=== PATIENT | male | born 1970 | race Caucasian/White ===

== ENCOUNTER 2016-10-08 18:23 | Inpatient (IN) | payer MEDICAID, OTHER ==
[~2016-10-08] VITALS: Ht 170.2 cm; Wt 91.2 kg
[~2016-10-08 18:23] MED LIST: AMLO2.5T2 PO; ATOR20TA38 PO; IBUP800T25 PO; METF500T PO; OMEG-135 PO; VIGA LEFT EYE
[2016-10-08] MEDS ORDERED: ONDANSETRON 4 MG INJ IV STA (19:54)
[2016-10-08] MEDS ORDERED: METOPROLOL 5 MG INJ IV STA (19:54)
[2016-10-08] MEDS ORDERED: morphine 4 MG/ML VIAL IV STA (19:54)
[2016-10-08] MEDS ORDERED: NITROGLYCERIN 2% 1 GM OINT PKT TD STA (19:54)
[2016-10-08 20:12] LABS: ADD SCAN DIFF NO
[2016-10-08 20:14] LABS: BASOPHILS % 0.3 % (0.0-2.0); EOSINOPHILS # 0.2 10^3/ul (0.0-0.5); EOSINOPHILS % 2.3 % (0.0-7.0); HEMATOCRIT 47.2 % (42.0-52.0); HEMOGLOBIN 16.7 g/dl (14.0-18.0); LYMPHOCYTES # 3.9 10^3/ul (0.8-2.9); LYMPHOCYTES % 40.5 % (15.0-51.0); MEAN CORPUSCULAR HEMOGLOBIN 29.8 pg (29.0-33.0); MEAN CORPUSCULAR HGB CONC 35.4 g/dl (32.0-37.0); MEAN CORPUSCULAR VOLUME 84.1 fl (82.0-101.0); MEAN PLATELET VOLUME 10.6 fl (7.4-10.4); MONOCYTE # 0.4 10^3/ul (0.3-0.9); MONOCYTES % 3.8 % (0.0-11.0); NEUTROPHIL # 5.1 10^3/ul (1.6-7.5); NEUTROPHILS % 52.9 % (39.0-77.0); PLATELET COUNT 212 10^3/UL (140-415); RED BLOOD COUNT 5.61 10^6/ul (4.70-6.10); RED CELL DISTRIBUTION WIDTH 11.8 % (11.5-14.5); WHITE BLOOD COUNT 9.6 10^3/ul (4.8-10.8)
[2016-10-08 20:23] LABS: INR 0.96; PROTIME 12.8 Sec (12.2-14.2)
[2016-10-08 20:24] LABS: CHLORIDE 96 mmol/L (97-110); PARTIAL THROMBOPLASTIN TIME 26.4 Sec (25.0-35.0); POTASSIUM 3.9 mmol/L (3.5-5.1); SODIUM 137 mmol/L (135-144)
[2016-10-08] MEDS ORDERED: IOHEXOL 350MG/ML 50 ML BTL ONE (20:26)
[2016-10-08] MEDS ORDERED: SOD CHLORIDE 0.9% 100 ML ONE (20:26)
[2016-10-08 20:27] LABS: ANION GAP 19 (8-16); CARBON DIOXIDE 26 mmol/L (21-31); CREATININE 0.58 mg/dl (0.61-1.24)
[2016-10-08 20:28] LABS: BLOOD UREA NITROGEN 11 mg/dl (7-20); CALCIUM 9.4 mg/dl (8.4-10.2); GLUCOSE 192 mg/dl (70-220)
[2016-10-08 20:40] LABS: TROPONIN-I < 0.012 ng/ml (0.00-0.12)
[2016-10-08] MEDS ORDERED: IOHEXOL 100 ML ONE (20:40)
--- NOTE | 2016-10-08 21:17 | RADRPT ---
PROCEDURE: XR Chest AP portable CLINICAL INDICATION: Chest pain TECHNIQUE: An AP portable radiograph of the chest was submitted. COMPARISON: 03/29/2014 FINDINGS: Support Hardware: None Cardiovascular: The cardiovascular silhouette appears unremarkable. Lung Snell: The lung snell appear clear with no nodule, alveolar infiltrate, or interstitial promi nence evident. Pleural Spaces: No pneumothorax or pleural effusion is identified. Osseous Structures: The osseous structures appear intact. Soft Tissues: The soft tissues appear unremarkable. IMPRESSION: Stable and unremarkable portable chest. Physician Yanick Date Time Electronically viewed and signed by Melvina Rucker Physician on 10/08/2016 21:16 /
[2016-10-08] MEDS ORDERED: ATOR40TA68 PO (21:22)
[2016-10-08] MEDS ORDERED: GLIM4TAB PO (21:23)
[2016-10-08] MEDS ORDERED: LISI20TA11 PO (21:23)
[2016-10-08] MEDS ORDERED: LISI1TAB6 PO (21:24)
--- NOTE | 2016-10-08 21:25 | ERA ---
ER Documentation Chief Complaint Date/Time DATE: 10/08/16 TIME: 21:23 Chief Complaint CP X4 DAYS INTERMITTENT WORSE TODAY. +SOB HPI 46-year-old male history of hypertension, smoking, hyperlipidemia who presents the emergency room with chest pain. 3 days of chest pain that is intermittent and now worse today that is substernal radiating to his back. He denies any pleuritic pain, no numbness or tingling. The patient states that his blood pressure is regular in the 160s over 110s. He states compliance with medications. Pain is moderate currently. ROS All systems reviewed and are negative except as per history of present illness. Medications Home Meds Reported Medications Lisinopril/Hydrochlorothiazide (Lisinopril-Hctz 20-12.5 mg Tab) 1 Each Tablet, 1 EACH PO DAILY, TAB 10/08/16 Glimepiride* (Glimepiride*) 4 Mg Tablet, 4 MG PO WITH BREAKFAST, TAB 10/08/16 Atorvastatin* (Atorvastatin*) 40 Mg Tablet, 40 MG PO DAILY, #30 TAB 10/08/16 Discontinued Reported Medications Lisinopril* (Lisinopril*) 20 Mg Tablet, 20 MG PO DAILY, #30 TAB 10/08/16 Discontinued Scripts Moxifloxacin Hcl* (Vigamox*) 0.5% - 3 Ml Opht, 1 DROP LEFT EYE TID for 7 Days, EA Prov:GUADALUPE DAWN SAL[employer] COMPENSATION ANALYST 04/12/16 Ibuprofen* (Motrin*) 800 Mg Tab, 800 MG PO Q8 Y for PAIN AND OR ELEVATED TEMP, # 30 TAB Prov:ANGÉLICA WRIGHT SALES COMPENSATION ANALYST 01/15/16 Metformin Hcl (Glucophage) 500 Mg Tab, 500 MG PO AC BREAKFAST DINNER for 30 Days Prov:SERGEY WALLACE SALES COMPENSATION ANALYST 10/08/14 Fish Oil* (Fish Oil*) 1,000 Mg Cap, 1000 MG PO BID for 30 Days, CAP Prov:SERGEY WALLACE SALES COMPENSATION ANALYST 10/08/14 Atorvastatin Calcium* (Atorvastatin Calcium*) 20 Mg Tab, 40 MG PO HS for 30 Days Prov:SERGEY WALLACE SALES COMPENSATION ANALYST 10/08/14 Amlodipine Besylate* (Norvasc*) 2.5 Mg Tab, 2.5 MG PO DAILY for 30 Days Prov:SERGEY WALLACE SALES COMPENSATION ANALYST 10/08/14 Allergies Allergies: Coded Allergies: No Known Allergy (Unverified , 10/08/16) Patient has allergy from antibiotics but does not know the names. PMhx/Soc History of Surgery: No (HERNIA REPAIR '87) Anesthesia Reaction: No Hx Neurological Disorder: No Hx Respiratory Disorders: No Hx Cardiac Disorders: Yes (HTN, HYPERLIPIDEMIA) Hx Psychiatric Problems: No Hx Miscellaneous Medical Probl: No (DM) Hx Alcohol Use: Yes (PT STATED "SOCIAL") Hx Substance Use: No Hx Tobacco Use: Yes Smoking Status: Heavy tobacco smoker FmHx Family History: coronary disease, No diabetes Physical Exam Vitals Vital Signs Date Time Temp Pulse Resp B/P Pulse Ox O2 Delivery O2 Flow Rate FiO2 10/08/16 20:13 98 18 148/97 98 10/08/16 19:18 99.0 98 20 153/97 99 Physical Exam General: Well developed, well nourished, no acute distress Head: Normocephalic, atraumatic. Eyes: Pupils equally reactive, EOM intact ENT: Moist mucous membranes Neck: Supple, no lymphadenopathy Respiratory: Lungs clear bilaterally, no distress Cardiovascular: RRR, no murmurs, rubs, or gallops Abdominal: Soft, non-tender, non-distended, no peritoneal signs : Deferred MSK: No edema, no unilateral swelling, 5/5 strength, no pulse deficit Neurologic: Alert and oriented, moving all extremities, normal speech, no focal weakness, no cerebellar signs Skin: No rash Psych: Normal mood Result Diagram: 10/08/16199910/08/161999 Results 24 hrs Laboratory Tests Test 10/08/16 20:00 Activated Partial Thromboplast Time 26.4Sec Anion Gap 19 Basophils # 0.010^3/ul Basophils % 0.3% Blood Urea Nitrogen 11mg/dl Calcium Level 9.4mg/dl Carbon Dioxide Level 26mmol/L Chloride Level 96mmol/L Creatinine 0.58mg/dl Eosinophils # 0.210^3/ul Eosinophils % 2.3% Glucose Level 192mg/dl Hematocrit 47.2% Hemoglobin 16.7g/dl INR International Normalized Ratio 0.96 Lymphocytes # 3.910^3/ul Lymphocytes % 40.5% Mean Corpuscular Hemoglobin 29.8pg Mean Corpuscular Hemoglobin Concent 35.4g/dl Mean Corpuscular Volume 84.1fl Mean Platelet Volume 10.6fl Monocytes # 0.410^3/ul Monocytes % 3.8% Neutrophils # 5.110^3/ul Neutrophils % 52.9% Nucleated Red Blood Cells # 0.010^3/ul Nucleated Red Blood Cells % 0.0/100WBC Platelet Count 96860^3/UL Potassium Level 3.9mmol/L Prothrombin Time 12.8Sec Prothrombin Time Ratio 1.0 Red Blood Count 5.6110^6/ul Red Cell Distribution Width 11.8% Sodium Level 137mmol/L Troponin I < 0.012ng/ml White Blood Count 9.610^3/ul Current Medications Medications (Trade) Dose Ordered Sig/Parish Route PRN Reason Start Time Stop Time Status Last Admin Dose Admin Nitroglycerin (Nitroglycerin 2% Oint) 1 inch ONCE STAT TD 10/08/16 19:54 10/08/16 19:55 DC 10/08/16 20:19 Morphine Sulfate (morphine) 4 mg ONCE STAT IV 10/08/16 19:54 10/08/16 19:55 DC 10/08/16 20:19 Ondansetron HCl (Zofran Inj) 4 mg ONCE STAT IV 10/08/16 19:54 10/08/16 19:55 DC 10/08/16 20:18 Metoprolol Tartrate (Lopressor) 5 mg ONCE STAT IV 10/08/16 19:54 10/08/16 19:55 DC IV Flush 10 ml 10 ml STK-MED ONCE .ROUTE 10/08/16 20:26 10/08/16 20:27 DC 10/08/16 21:20 Sodium Chloride (NS) 100 ml @ ud STK-MED ONCE .ROUTE 10/08/16 20:26 10/08/16 20:27 DC 10/08/16 21:29 Iohexol 50 ml 50 ml STK-MED ONCE .ROUTE 10/08/16 20:26 10/08/16 20:27 DC 10/08/16 21:28 Iohexol (Omnipaque) 100 ml @ ud STK-MED ONCE .ROUTE 10/08/16 20:40 10/08/16 20:41 DC 10/08/16 21:30 Aspirin (Aspirin) 324 mg ONCE ONCE PO 10/08/16 22:30 10/08/16 22:31 UNV Aspirin (Aspirin) 325 mg ONCE PO 10/08/16 22:30 10/09/16 22:29 Ondansetron HCl (Zofran Inj) 4 mg ER BRIDGE PRN IV NAUSEA AND/OR VOMITING 10/08/16 22:30 10/09/16 22:29 Acetaminophen (Tylenol Tab) 650 mg ER BRIDGE PRN PO MILD PAIN/FEVER 10/08/16 22:30 10/09/16 22:29 Procedures/MDM EKG, MONITORS, & DIAGNOSTIC IMAGING: EKG: I reviewed and interpreted a 12-lead EKG. Rhythm: Normal sinus rhythm Ectopy: None Intervals: No abnormalities ST segments: No elevations or depressions T waves: No contiguous inversions Repeat EKG: EKG: I reviewed and interpreted a 12-lead EKG. Rhythm: Normal sinus rhythm Ectopy: None Intervals: No abnormalities ST segments: No elevations or depressions T waves: No contiguous inversions Chest x-ray: I reviewed and interpreted a 1 view of the chest Mediastinum: No enlargement Cardiac silhouette: No cardiomegaly Airspace: Clear lung snell bilaterally without evidence of pneumothorax Bones: No evidence of fracture CTA chest for dissection No dissection no pulmonary embolism LAB INTERPRETATION: Negative troponin MEDICAL DECISION MAKING: The patient's history, physical exam and clinical presentation is concerning for possible cardiogenic etiology and acute coronary syndrome. The patient also has significant hypertension and migratory pain to his back raises the concern for dissection. This warrants CT imaging. Based on the patient's clinical exam and history and risk factors, I have a much lower clinical concern for pulmonary embolism, pneumothorax, pneumonia, cardiac tamponade HEART Score: 4 MACE Rate: 16.6% Shared Decision Making: We had a conversation regarding risk stratification, MACE rate, and the risks, benefits, alternatives of disposition planning options. Disposition planning: Strongly recommend inpatient hospitalization, patient is agreeable ER COURSE: Avoid aspirin until negative CT imaging. The patient was given metoprolol, pain medication. Aspirin provided. Pain improved. Blood pressure improved. I kept the patient and/or family informed of laboratory and diagnostic imaging results throughout the emergency room course. DISPOSITION PLAN: Telemetry admission for risk stratification, rule out of ACS CONSULTATION: Accepting care team and consultations: I discussed the current laboratory data, diagnostic imaging and emergency care provided. Admitting team: Dr. Amaya Admitting team indication: Insurance directed Departure Diagnosis: Primary Impression: Hypertensive urgency Additional Impression: Chest pain Qualified Code: R07.9 - Chest pain, unspecified type Condition: Stable SANTOS BAXTER MD Oct 08, 2016 21:25
--- NOTE | 2016-10-08 22:02 | RADRPT ---
PROCEDURE: CT chest with contrast/thoracic aortic protocol CLINICAL INDICATION: Chest pain and shortness of breath. Clinical concern for aortic dissection TECHNIQUE: The study was performed from the thoracic inlet to the upper abdomen with the use of 12 5 cc of , AP 350 intravenous contrast material per thoracic aortic dissection protocol. Coronal/sagi ttal reformatted images and coronal MIP images were generated. The images were reviewed on a PACS w orkstation. CTDIvol = 54.21 mGy and DLP= 809.12 mGycm. COMPARISON: Chest x-ray 10/08/2016 FINDINGS: Lungs, airway and pleura: The trachea and bronchi are patent as well as normal in caliber. The nitin gs are clear of infiltrates, masses or nodules, trace dependent subsegmental atelectasis in the lowe r lobes is present. The pleural spaces are clear, without effusions. Mediastinum, kostas and cardiovascular: The heart is normal in size. There is no evidence for perica rdial effusion. The thoracic aorta is normal in caliber and there is no evidence of dissection. The re are no filling defects within the pulmonary arteries to suggest emboli. There is no evidence for hilar mass and no mediastinal adenopathy is present. The esophagus is normal in caliber but with mi ld wall thickening raising suggestion of esophagitis. Osseous structures and musculoskeletal findings: There is preservation of bone architecture and min eralization with no evidence for fracture, lytic or blastic lesion. Mild multilevel thoracic spondyl osis is noted. No chest wall abnormalities are present. The axillary regions are unremarkable. Visualized upper abdomen: Subtle stranding of the fat surrounding the pancreatic head raises sugges tion of pancreatitis, no other abnormalities are demonstrated. The adrenal glands are normal bilate rally. RPTAT:HJJR IMPRESSION: 1. No evidence of aortic dissection or thoracic aortic aneurysm. 2. Mild diffuse esophageal wall thickening may reflect esophagitis in the proper clinical setting. 3. No evidence of pulmonary embolism. 4. Subtle stranding surrounding the visualized pancreatic head equivocal for pancreatitis. Consider serologic lipase correlation if deemed clinically appropriate. Physician Jesenia Date Time Electronically viewed and signed by Physician Jesenia on 10/08/2016 22:02 /
[2016-10-08] MEDS ORDERED: ACETAMINOPHEN 325 MG TAB PO PRN ×2 (22:30→23:00)
[2016-10-08] MEDS ORDERED: ONDANSETRON 4 MG INJ IV PRN ×2 (22:30→23:00)
[2016-10-08] MEDS ORDERED: ASPIRIN 325 MG TAB PO SCH (22:30)
[2016-10-08] MEDS ORDERED: ASPIRIN 81 MG TAB PO ONE (22:30)
[2016-10-08] MEDS ORDERED: SOD CHLORIDE 0.45% 1,000 ML IV SCH (22:31)
[2016-10-08] MEDS ORDERED: GLUCOSE GEL 15 GRAM TUBE PO PRN ×2 (23:00)
[2016-10-08] MEDS ORDERED: NITROGLYCERIN (SL) 0.4 MG TAB SL PRN (23:00)
[2016-10-08] MEDS ORDERED: morphine 2 MG INJ IV PRN (23:00)
[2016-10-08] MEDS ORDERED: ALBUTEROL/IPRATROPIUM (NEB) 3 ML AMP HHN PRN (23:00)
[2016-10-08] MEDS ORDERED: GLUCOSE GEL 15 GRAM TUBE BUCCAL PRN (23:00)
[2016-10-08] MEDS ORDERED: DEXTROSE 50% 50 ML SYRINGE IV PRN ×2 (23:00)
[2016-10-08] MEDS ORDERED: MAGNESIUM HYDROXIDE 30ML CUP PO PRN (23:00)
[2016-10-08] MEDS ORDERED: DOCUSATE SODIUM 100 MG CAP PO PRN (23:00)
[2016-10-08] MEDS ORDERED: NACL 0.9% 3 ML SYG IV SCH (23:00)
[2016-10-08] MEDS ORDERED: NA PHOSPHATE/BIPHOS 133 ML ENEMA PR PRN (23:00)
[2016-10-08] MEDS ORDERED: LORAZEPAM 2 MG INJ IV PRN (23:00)
[2016-10-08] MEDS ORDERED: HYDROCODONE/APAP (5/325) TAB PO PRN (23:00)
[2016-10-08] MEDS ORDERED: hydrALAzine 20 MG INJ IV PRN (23:00)
[2016-10-08] MEDS ORDERED: GLUCAGON 1 MG INJ IM PRN (23:00)
[2016-10-08 23:24] LABS: CREATINE KINASE 81 IU/L (23-200)
[2016-10-08 23:28] VITALS: PULSE 76
[2016-10-08 23:29] VITALS: BP 138/89; PULSE 70; RESP 18
[2016-10-08 23:31] VITALS: Ht 170.2 cm; Wt 91.2 kg
[2016-10-08 23:36] LABS: CK-MB < 0.22 ng/ml (0.0-2.4)
[2016-10-08 23:38] LABS: TROPONIN-I < 0.012 ng/ml (0.00-0.12)
[2016-10-09] VITALS (13 sets, daily range): BP systolic 97–114; BP diastolic 60–74; PULSE 57–89; RESP 16–20
[2016-10-09] MEDS: INSULIN ASPART [NOVOLOG] 3 ML PEN SC SCH ×6 (01:00→22:04)
[2016-10-09 02:39] LABS: CREATINE KINASE 72 IU/L (23-200)
[2016-10-09 02:49] LABS: CK-MB 0.27 ng/ml (0.0-2.4)
[2016-10-09 02:59] LABS: TROPONIN-I < 0.012 ng/ml (0.00-0.12)
--- NOTE | 2016-10-09 05:29 | HP ---
DATE OF ADMISSION: 10/08/2016 The patient was seen and examined by me on 10/08/2016 at 10:00 p.m. CHIEF COMPLAINT: Chest pain. HISTORY OF PRESENT ILLNESS: A 46-year-old male with past medical history of essential hypertension, high cholesterol, and questionable diabetes who presented to the emergency room with chest pain. Armani rangel had been complaining of chest pain for the last 3 days. The pain initially was intermittent in na ture and has gotten worse over the last 24 hours. It radiates slightly to his back. It was subster nal in nature. No fevers or chills, no diarrhea, no constipation, no abdominal pain. No upper or l ower GI bleeding. The patient did mention that his blood pressure is normally on the high normal ra nge, systolic in the 160s, and he says he does take his medicines as well. PAST MEDICAL HISTORY: As stated above. ALLERGIES: NO KNOWN DRUG ALLERGIES. MEDICATIONS AT HOME: Include 1. Glimepiride 4 mg with breakfast. 2. Lisinopril/hydrochlorothiazide 20/12.5, one tab daily. 3. Atorvastatin 40 mg daily. PAST SURGICAL HISTORY: He had a hernia repair in 1986. SOCIAL HISTORY: Drinks social alcohol, does smoke, states he is a heavy tobacco smoker but does not specify how much. Denies any IV drug abuse. FAMILY HISTORY: No coronary artery disease. No diabetes today. PHYSICAL EXAMINATION: VITAL SIGNS: T-max 99.0, pulse 98, respirations 18, blood pressure 148 to 153 systolic over 97 to 9 7 diastolic, saturating at 99% on room air. GENERAL: The patient is lying in bed, no acute distress. HEENT: Pupils equal, round, react to light. Extraocular muscles intact. NECK: Supple, no thyromegaly. LUNGS: Clear to auscultation bilaterally. CARDIOVASCULAR: S1, S2 heard. No rubs or gallops. ABDOMEN: Soft, nontender, nondistended. Normal bowel sounds. No rebound or guarding. MUSCULOSKELETAL: No lower extremity bilaterally. NEUROLOGIC: No focal deficits. LABORATORIES: CBC is completely normal. The troponin is negative x1. His basic metabolic panel wa s normal. Coags are normal. Chest x-ray was performed, stable, unremarkable chest x-ray. He had a CTA of the chest performed with no evidence of any aortic dissection or thoracic aortic aneurysm an d no evidence of any pulmonary embolism. Mild diffuse esophageal wall thickening may reflect esopha gitis in the proper clinical setting. Also on the CTA, there was subtle stranding surrounding the v isualized pancreatic head equivocal for pancreatitis. Consider serological lipase correlation if de emed clinically appropriate. ASSESSMENT AND PLAN: A 46-year-old male with chest pain symptoms, rule out acute coronary syndrome. 1. Chest pain. Admit him to telemetry floor, put him on aspirin, morphine, oxygen, and nitrates. Trend his troponins; first one is negative. Check a TSH, A1c, lipid panel, get echocardiogram. The patient does have a positive smoking history. Apparently no family history. Consider cardiology c onsult. The patient may benefit from a stress test; however, of course we will try to rule him out for acute coronary syndrome. 2. Essential hypertension. Blood pressure is on the high normal range. Continue current medicatio ns, JULIÁN inhibitor, hydrochlorothiazide, and also hydralazine and clonidine p.r.n. 3. Questionable diabetes. Check an A1c as well. Consider sliding scale insulin. 4. Positive smoking history. He needs smoking cessation. Again, consider cardiology consult if th ere are any abnormalities with his troponins. 5. High cholesterol. Check a lipid panel. 6. Gastrointestinal prophylaxis. Pepcid. 7. Deep venous thrombosis prophylaxis. Heparin subcutaneously. Dictated By: ABRIL BRYANT Conf#: [id number] DID#: [id number]
[2016-10-09 06:49] LABS: ADD SCAN DIFF NO
[2016-10-09 07:01] LABS: BASOPHILS % 0.3 % (0.0-2.0); EOSINOPHILS # 0.3 10^3/ul (0.0-0.5); EOSINOPHILS % 3.4 % (0.0-7.0); HEMATOCRIT 46.2 % (42.0-52.0); HEMOGLOBIN 15.8 g/dl (14.0-18.0); LYMPHOCYTES # 3.6 10^3/ul (0.8-2.9); MEAN CORPUSCULAR HEMOGLOBIN 29.4 pg (29.0-33.0); MEAN CORPUSCULAR HGB CONC 34.2 g/dl (32.0-37.0); MEAN CORPUSCULAR VOLUME 85.9 fl (82.0-101.0); MEAN PLATELET VOLUME 10.5 fl (7.4-10.4); MONOCYTE # 0.3 10^3/ul (0.3-0.9); NEUTROPHIL # 3.6 10^3/ul (1.6-7.5); PLATELET COUNT 186 10^3/UL (140-415); RED BLOOD COUNT 5.38 10^6/ul (4.70-6.10); RED CELL DISTRIBUTION WIDTH 12.1 % (11.5-14.5); WHITE BLOOD COUNT 7.8 10^3/ul (4.8-10.8)
[2016-10-09 07:16] LABS: CHOL/HDL RATIO 5.9 RATIO; CREATINE KINASE 67 IU/L (23-200)
[2016-10-09 07:30] LABS: CK-MB 0.28 ng/ml (0.0-2.4); TROPONIN-I < 0.012 ng/ml (0.00-0.12)
[2016-10-09 07:47] LABS: THYROID STIMULATING HORMONE 2.75 MIU/L (0.465-4.680)
[2016-10-09 07:52] LABS: POTASSIUM 3.5 mmol/L (3.5-5.1)
[2016-10-09 07:55] LABS: CREATININE 0.58 mg/dl (0.61-1.24)
[2016-10-09 07:56] LABS: CALCIUM 8.8 mg/dl (8.4-10.2); MAGNESIUM 1.7 mg/dl (1.7-2.5); PHOSPHORUS 4.7 mg/dl (2.5-4.9)
[2016-10-09] MEDS: HYDROCHLOROTHIAZIDE 12.5 MG CAP PO SCH (08:12)
[2016-10-09] MEDS: ATORVASTATIN 40 MG TAB PO SCH (08:12)
[2016-10-09] MEDS: LISINOPRIL 20 MG TAB PO SCH (08:12)
[2016-10-09] MEDS: ASPIRIN (EC) 325 MG TAB PO SCH (08:12)
[2016-10-09] MEDS: HEPARIN 5,000 UNIT/0.5 ML SYG SC SCH ×2 (08:14→20:06)
[2016-10-09] MEDS ORDERED: FAMOTIDINE 20 MG TAB PO SCH (09:00)
--- NOTE | 2016-10-09 10:40 | PN ---
Date/Time of Note Date/Time of Note DATE: 10/09/16 TIME: 10:31 Assessment/Plan VTE Prophylaxis VTE Prophylaxis Intervention: heparin Lines/Catheters IV [facility] Peripheral IV Urinary Cath still in place: No Assessment/Plan Assessment/Plan 1. atypical chest pain rule out ACS 2. Essential hypertension. Blood pressure is on the high normal range. Continue current medications, JULIÁN inhibitor, hydrochlorothiazide, and also hydralazine and clonidine p.r.n. 3. Questionable diabetes. Check an A1c as well. Consider sliding scale insulin. 4. Positive smoking history. He needs smoking cessation. Again, consider cardiology consult if there are any abnormalities with his troponins. 5. High cholesterol. Check a lipid panel. 6. Gastrointestinal prophylaxis. Pepcid. 7. Deep venous thrombosis prophylaxis. Heparin subcutaneously. Plan: conitnue BP meds Accucheck AC and HS and sliding scale Cardiology consult Griselda osullivan tot see pt ECHO has been ordered may need stress test depending on cardiology evaluation Subjective 24 Hr Interval Summary Free Text/Dictation doing ok,BP stable, But still c/o chest pain Exam/Review of Systems Vital Signs Vitals Vital Signs Date Time Temp Pulse Resp B/P Pulse Ox O2 Delivery O2 Flow Rate FiO2 10/09/16 08:09 60 10/09/16 07:48 97.5 18 111/74 93 10/09/16 05:20 Room Air Intake and Output 10/08/16 10/08/16 10/09/16 15:00 23:00 07:00 Intake Total 720 ml Balance 720 ml Exam GENERAL: The patient is lying in bed, no acute distress. HEENT: Pupils equal, round, react to light. Extraocular muscles intact. NECK: Supple, no thyromegaly. LUNGS: Clear to auscultation bilaterally. CARDIOVASCULAR: S1, S2 heard. No rubs or gallops. ABDOMEN: Soft, nontender, nondistended. Normal bowel sounds. No rebound or guarding. MUSCULOSKELETAL: No lower extremity bilaterally. NEUROLOGIC: No focal deficits. Results Result Diagram: 10/09/16 0640 10/09/16 0611 Results 24 hrs Laboratory Tests Test 10/08/16 20:00 10/08/16 23:00 10/09/16 01:55 10/09/16 04:24 Activated Partial Thromboplast Time 26.4 Anion Gap 19 H Basophils # 0.0 Basophils % 0.3 Blood Urea Nitrogen 11 Calcium Level 9.4 Carbon Dioxide Level 26 Chloride Level 96 L Creatinine 0.58 L Eosinophils # 0.2 Eosinophils % 2.3 Glucose Level 192 Hematocrit 47.2 Hemoglobin 16.7 INR International Normalized Ratio 0.96 Lymphocytes # 3.9 H Lymphocytes % 40.5 Mean Corpuscular Hemoglobin 29.8 Mean Corpuscular Hemoglobin Concent 35.4 Mean Corpuscular Volume 84.1 Mean Platelet Volume 10.6 H Monocytes # 0.4 Monocytes % 3.8 Neutrophils # 5.1 Neutrophils % 52.9 Nucleated Red Blood Cells # 0.0 Nucleated Red Blood Cells % 0.0 Platelet Count 212 Potassium Level 3.9 Prothrombin Time 12.8 Prothrombin Time Ratio 1.0 Red Blood Count 5.61 Red Cell Distribution Width 11.8 Sodium Level 137 Troponin I < 0.012 < 0.012 < 0.012 White Blood Count 9.6 # Creatine Kinase 81 72 Creatine Kinase Index 0.3 0.4 Creatinine Kinase MB (Mass) < 0.22 0.27 Free Thyroxine 1.09 Bedside Glucose 181 Test 10/09/16 06:11 10/09/16 06:40 10/09/16 07:40 Anion Gap 16 Blood Urea Nitrogen 11 Calcium Level 8.8 Carbon Dioxide Level 27 Chloride Level 99 Creatinine 0.58 L Glucose Level 192 Lipase 71 Magnesium Level 1.7 Phosphorus Level 4.7 Potassium Level 3.5 Sodium Level 138 Basophils # 0.0 Basophils % 0.3 Cholesterol Level 203 H Cholesterol/HDL Ratio 5.9 Creatine Kinase 67 Creatine Kinase Index 0.4 Creatinine Kinase MB (Mass) 0.28 Eosinophils # 0.3 Eosinophils % 3.4 HDL Cholesterol 34 Hematocrit 46.2 Hemoglobin 15.8 Hemoglobin A1c 10.9 H LDL Cholesterol, Calculated 97 Lymphocytes # 3.6 H Lymphocytes % 46.0 Mean Corpuscular Hemoglobin 29.4 Mean Corpuscular Hemoglobin Concent 34.2 Mean Corpuscular Volume 85.9 Mean Platelet Volume 10.5 H Monocytes # 0.3 Monocytes % 4.0 Neutrophils # 3.6 Neutrophils % 46.0 Nucleated Red Blood Cells # 0.0 Nucleated Red Blood Cells % 0.0 Platelet Count 186 Red Blood Count 5.38 Red Cell Distribution Width 12.1 Thyroid Stimulating Hormone (TSH) 2.750 Triglycerides Level 358 H Troponin I < 0.012 White Blood Count 7.8 Bedside Glucose 212 Medications Medications Current Medications Ondansetron HCl (Zofran Inj) 4 mg Q6H PRN IV NAUSEA AND/OR VOMITING; Start at 23:00 Acetaminophen (Tylenol Tab) 650 mg Q6H PRN PO PAIN LEVEL 1-3 OR FEVER; Start at 23:00 Acetaminophen/ Hydrocodone Bitart (Flushing (5/325)) 1 tab Q6H PRN PO MODERATE PAIN LEVEL 4-6; Start 10/08/16 at 23:00 Morphine Sulfate (morphine) 2 mg Q4H PRN IV SEVERE PAIN LEVEL 7-10; Start 10/08 at 23:00 Docusate Sodium (Colace) 100 mg Q12H PRN PO CONSTIPATION; Start 10/08/16 at 23: 00 Magnesium Hydroxide (Milk Of Mag) 30 ml DAILY PRN PO CONSTIPATION; Start at 23:00 Sodium Biphosphate/ Sodium Phosphate (Fleet Enema) 133 ml DAILY PRN OR CONSTIPATION; Start 10/08/16 at 23:00 Famotidine (Pepcid) 20 mg Q12 PO Last administered on 10/09/16 08:12; Admin Dose 20 MG; Start 10/09/16 at 09:00 Heparin Sodium (Porcine) 5000 unit 5,000 unit Q12 SC Last administered on 08:14; Admin Dose 5,000 UNIT; Start 10/09/16 at 09:00 Sodium Chloride (1/2 NS) 1,000 ml @ 75 mls/hr [id number] IV Last administered on 10/08/16 23:03; Admin Dose 75 MLS/HR; Start 10/08/16 at 22:31 Lorazepam (Ativan) 0.5 mg Q6H PRN IV ANXIETY; Start 10/08/16 at 23:00 Hydralazine HCl (Apresoline) 10 mg Q6H PRN IV ELEVATED BLOOD PRESSURE; Start at 23:00 Clonidine (Catapres) 0.1 mg Q6H PRN PO ELEVATED BLOOD PRESSURE; Start 10/08/16 at 23:00 Nitroglycerin (Nitroglycerin (Sl Tab) 0.4 Mg) 1 tab Q5M PRN SL ANGINA; Start at 23:00 Aspirin (Ecotrin) 325 mg DAILY PO Last administered on 10/09/16 08:12; Admin Dose 325 MG; Start 10/09/16 at 09:00 Atorvastatin Calcium (Lipitor) 40 mg DAILY PO Last administered on 10/09/16 08 :12; Admin Dose 40 MG; Start 10/09/16 at 09:00 Insulin Aspart (Novolog Insulin Pen) NOVOLOG *MILD* ALGORI... Q4 SC Last administered on 10/09/16 08:14; Admin Dose 2 UNIT; Start 10/09/16 at 01:00 Miscellaneous Information 1 ea NOTE XX ; Start 10/08/16 at 23:00 Glucose (Glutose) 15 gm Q15M PRN PO DECREASED GLUCOSE; Start 10/08/16 at 23:00 Glucose (Glutose) 22.5 gm Q15M PRN PO DECREASED GLUCOSE; Start 10/08/16 at 23: 00 Dextrose (D50w Syringe) 25 ml Q15M PRN IV DECREASED GLUCOSE; Start 10/08/16 at 23:00 Dextrose (D50w Syringe) 50 ml Q15M PRN IV DECREASED GLUCOSE; Start 10/08/16 at 23:00 Glucagon (Glucagen) 1 mg Q15M PRN IM DECREASED GLUCOSE; Start 10/08/16 at 23:00 Glucose (Glutose) 15 gm Q15M PRN BUCCAL DECREASED GLUCOSE; Start 10/08/16 at 23 :00 Lisinopril (Zestril) 20 mg DAILY PO Last administered on 10/09/16 08:12; Admin Dose 20 MG; Start 10/09/16 at 09:00 Hydrochlorothiazide (Hydrochlorothiazide) 12.5 mg DAILY PO Last administered on 10/09/16 08:12; Admin Dose 12.5 MG; Start 10/09/16 at 09:00 NONA BLACK MD Oct 09, 2016 10:39
[2016-10-09] MEDS ORDERED: AL HYDROX/MG HYDROX/SIMETH 30 ML CUP PO ONE (11:00)
[2016-10-09] MEDS ORDERED: AL HYDROX/MG HYDROX/SIMETH 30 ML CUP PO PRN (11:00)
--- NOTE | 2016-10-09 11:46 | CONS ---
DATE OF ADMISSION: 10/08/2016 DATE OF CONSULTATION: 10/09/2016 TYPE OF CONSULTATION: Cardiology REFERRING PHYSICIAN: Dr. Rodriguez REASON FOR EVALUATION: Chest pain, hypertension, history of diabetes. HISTORY OF PRESENT ILLNESS: Mr. Anderson is a 46-year-old gentleman with history of hypertension, dyslipidemia, history of diabetes for about 10 years, who presents to the hospital now for evaluati on of precordial chest pain. The patient said that the chest pain happened yesterday and said it garcia d been intermittent on and off. His first set of troponins is negative. The patient has multiple r isk factors for coronary artery disease. His diabetes is very poorly controlled with a hemoglobin A 1c of 10.9. As such, I think it would be reasonable for the patient to have ischemic risk stratific ation in the hospital. We are going to facilitate a stress test. We will optimize his blood pressu re and diabetic control. PAST MEDICAL HISTORY: 1. Hypertension. 2. Dyslipidemia. 3. Possible coronary artery disease. 4. History of positive tobacco use. 5. History of medical noncompliance. ALLERGIES: NO KNOWN DRUG ALLERGIES. SOCIAL HISTORY: The patient smokes a pack of cigarettes a day. Does not drink, does not use drugs. FAMILY HISTORY: Negative for sudden cardiac or premature coronary artery disease. MEDICATIONS: Now include: 1. Diabetes therapy with insulin. 2. Aspirin 325 mg. 3. Atorvastatin 40 mg. 4. Lisinopril 20 mg once a day. 5. Lorazepam. 6. Albuterol. 7. Hydralazine. 8. Clonidine. 9. Glucose. REVIEW OF SYSTEMS: CONSTITUTIONAL: No fevers, no chills. Chest pain as described. HEENT: No changes in vision or hearing. CARDIAC: History of chest pain as reported, but not now. RESPIRATORY: Short of breath. GASTROINTESTINAL: No nausea, vomiting, diarrhea, constipation. GENITOURINARY: No dysuria, hematuria. NEUROLOGIC: No focal deficits. HEMATOLOGIC: No easy bruising. PSYCHIATRIC: No known history of psychiatric illness. PHYSICAL EXAMINATION: VITAL SIGNS: Temperature is 97.3, heart rate 60, blood pressure 111/64. GENERAL: He is a well-nourished gentleman in no acute distress, alert and oriented x3, aware of his condition. HEAD: Normocephalic, atraumatic. Eyes anicteric. NECK: Supple. JVD 6-7 cm. There is no lymphadenopathy, no thyromegaly. HEART: Regular with soft holosystolic murmur that changes with respiration. PMI is nondisplaced. There is no S3, S4. LUNGS: Coarse at the bases. ABDOMEN: Distended, bowel sounds are present. There is no hepatosplenomegaly. GENITOURINARY: Grossly intact. EXTREMITIES: Show no clubbing, cyanosis or edema. LABORATORY DATA: Hemoglobin is 15.9. His troponin is 0.012. ASSESSMENT AND PLAN: 1. Chest pain. The patient has reported chest pain, has multiple risk factors for coronary artery disease, such as hypertension, diabetes, positive tobacco abuse. We will risk stratify with a stres s test tomorrow. 2. Hypertension. Blood pressure was high on admission, better now. Continue medical therapy. We will see if patient can tolerate a low dose of beta lindsay. 3. Diabetes. Continue diabetic optimization and care. His hemoglobin A1c is very high. Continue diabetic therapy. 4. Dyslipidemia. LDL is in the range at 97. We will await stress test results before adding any a dditional agents. 5. Abnormal EKG, nonspecific ST changes noted. No evidence of ST elevation. I would like to thank Dr. Rodriguez for referring this patient for my evaluation. Dictated By: DENNIS VARNER MD ML/NTS Conf#: [id number] DID#: [id number]
--- NOTE | 2016-10-09 11:52 | RADRPT ---
Echocardiogram Report Patient Name: LAYTON VILA Gender: Male Date: 1970 Study Date: 09-Oct-2016 Attendance Secretary: Cassidy Euceda SHAY Location: [facility] Ref. Physician: ABRIL ZEPEDA Quality: Good Procedures: Transthoracic echocardiogram with complete 2D, M-Mode, and doppler examination. Indications: Chest Pain. 2D/M Mode Doppler Measurement Value Normal Ranges Measurement Value Normal Ranges LVIDd 2D 4.9 3.5 - 5.6 cm AV Peak Juan 1.2 m/sec LVIDs 2D 2.3 2.1 - 4.1 cm AV Peak PG 6.0 mmHg FS 2D 52.7 % LVOT Peak Juan 0.9 m/sec LVPWd 2D 0.9 0.6 - 1.1 cm LVOT Peak PG 3.0 mmHg IVSd 2D 1.0 0.6 - 1.1 cm MV E Peak Juan 0.6 m/sec IVS/LVPW 2D 1.1 MV A Peak Juan 0.7 m/sec AoR Diam 2D 3.0 2.0 - 3.7 cm MV E/A 0.9 LA/Ao 2D 1 0 - 1 MV Decel Time 187 msec EDV 2D 116.0 cm3 MV E/A 0.9 ESV 2D 12.3 cm3 LA Dimen 2D 3.3 2.3 - 4.0 cm Findings Left Ventricle: Normal left ventricular systolic function. Normal left ventricular cavity size. Mild concentric left ventricular hypertrophy. Ejection fraction is visually estimated at 65 %. Tissue Doppler/Mitral Doppler indices are consistent with impaired relaxation (Stage I diastolic dysfunction). Right Ventricle: Normal right ventricular size. Normal right ventricular systolic function. Left Atrium: The left atrium is normal in size. Right Atrium: The right atrium is normal in size. Mitral Valve: Normal appearance and function of the mitral valve with trace physiologic regurgitation. Aortic Valve: Normal appearance of the aortic valve. No significant aortic stenosis or insufficiency. Tricuspid Valve: Normal appearance of the tricuspid valve. Unable to obtain RVSP due to minimal presence of tricuspid regurgitation. Pulmonic Valve: Pulmonic valve not well visualized. Pericardium: Normal pericardium with no significant pericardial effusion. Aorta: Normal aortic root. IVC: Normal size and normal respiratory collapse consistent with normal right atrial pressure. Conclusions 1.Normal left ventricular systolic function. Normal left ventricular cavity size. Mild concentric left ventricular hypertrophy. Ejection fraction is visually estimated at 65 %. Tissue Doppler/Mitral Doppler indices are consistent with impaired relaxation (Stage I diastolic dysfunction). 2.Normal appearance and function of the mitral valve with trace physiologic regurgitation. 3.Normal appearance of the aortic valve. No significant aortic stenosis or insufficiency. 4.Normal appearance of the tricuspid valve. Unable to obtain RVSP due to minimal presence of tricuspid regurgitation. Electronically Signed By: Warren Villalobos 09-Oct-2016 11:51:10 -0700 Patient Name: LAYTON VILA Study Date: 09-Oct-2016 [id number]
[2016-10-09 12:42] LABS: CREATINE KINASE 64 IU/L (23-200)
[2016-10-09 13:01] LABS: CK-MB 0.23 ng/ml (0.0-2.4); TROPONIN-I < 0.012 ng/ml (0.00-0.12)
[2016-10-09] MEDS: FAMOTIDINE 20 MG INJ IV SCH (20:04)
[2016-10-09] MEDS ORDERED: INSULIN GLARGINE [LANtus] 3 ML PEN SC SCH (21:00)
[2016-10-10] VITALS (7 sets, daily range): BP systolic 108–121; BP diastolic 70–76; PULSE 50–70; RESP 18–20
[2016-10-10] MEDS ORDERED: ACCUCHECK XX SCH (02:00)
[2016-10-10] MEDS: HYDROCHLOROTHIAZIDE 12.5 MG CAP PO SCH (08:20)
[2016-10-10] MEDS: FAMOTIDINE 20 MG INJ IV SCH (08:21)
[2016-10-10] MEDS: ATORVASTATIN 40 MG TAB PO SCH (08:21)
[2016-10-10] MEDS: ASPIRIN (EC) 325 MG TAB PO SCH (08:21)
[2016-10-10] MEDS: LISINOPRIL 20 MG TAB PO SCH (08:21)
[2016-10-10] MEDS: INSULIN ASPART [NOVOLOG] 3 ML PEN SC SCH ×4 (08:46→17:17)
[2016-10-10] MEDS: HEPARIN 5,000 UNIT/0.5 ML SYG SC SCH (08:47)
[2016-10-10 09:52] LABS: ADD SCAN DIFF NO
[2016-10-10 09:59] LABS: BASOPHILS % 0.3 % (0.0-2.0); EOSINOPHILS # 0.2 10^3/ul (0.0-0.5); EOSINOPHILS % 2.9 % (0.0-7.0); HEMATOCRIT 45.7 % (42.0-52.0); HEMOGLOBIN 15.5 g/dl (14.0-18.0); LYMPHOCYTES % 42.9 % (15.0-51.0); MEAN CORPUSCULAR HEMOGLOBIN 28.9 pg (29.0-33.0); MEAN CORPUSCULAR HGB CONC 33.9 g/dl (32.0-37.0); MEAN CORPUSCULAR VOLUME 85.3 fl (82.0-101.0); MEAN PLATELET VOLUME 10.6 fl (7.4-10.4); MONOCYTE # 0.4 10^3/ul (0.3-0.9); MONOCYTES % 5.4 % (0.0-11.0); NEUTROPHIL # 3.4 10^3/ul (1.6-7.5); NEUTROPHILS % 48.4 % (39.0-77.0); PLATELET COUNT 183 10^3/UL (140-415); RED BLOOD COUNT 5.36 10^6/ul (4.70-6.10)
[2016-10-10 10:12] LABS: POTASSIUM 4.1 mmol/L (3.5-5.1)
[2016-10-10 10:15] LABS: CREATININE 0.6 mg/dl (0.61-1.24)
[2016-10-10 10:16] LABS: CALCIUM 9.4 mg/dl (8.4-10.2)
--- NOTE | 2016-10-10 11:21 | PN ---
Date/Time of Note Date/Time of Note DATE: 10/10/16 TIME: 11:20 Assessment/Plan VTE Prophylaxis VTE Prophylaxis Intervention: SCD's Lines/Catheters IV [facility] Saline [facility] Urinary Cath still in place: No Assessment/Plan Assessment/Plan 1. atypical chest pain rule out ACS 2. Essential hypertension. Blood pressure is on the high normal range. Continue current medications, JULIÁN inhibitor, hydrochlorothiazide, and also hydralazine and clonidine p.r.n. 3. Questionable diabetes. Check an A1c as well. Consider sliding scale insulin. 4. Positive smoking history. He needs smoking cessation. Again, consider cardiology consult if there are any abnormalities with his troponins. 5. High cholesterol. Check a lipid panel. 6. Gastrointestinal prophylaxis. Pepcid. 7. Deep venous thrombosis prophylaxis. Heparin subcutaneously. Plan: conitnue BP meds Accucheck AC and HS and sliding scale stress test today lactulose, miralaxi for constipatin nexium po on discharge Subjective 24 Hr Interval Summary Free Text/Dictation c/o constipation, plan for lexiscan today Exam/Review of Systems Vital Signs Vitals Vital Signs Date Time Temp Pulse Resp B/P Pulse Ox O2 Delivery O2 Flow Rate FiO2 10/10/16 08:59 60 10/10/16 07:21 98.2 20 121/71 98 10/09/16 05:20 Room Air Intake and Output 10/09/16 10/09/16 10/10/16 15:00 23:00 07:00 Intake Total 970 ml 60 ml Balance 970 ml 60 ml Results Result Diagram: 10/10/16 0939 10/10/16 0939 Results 24 hrs Laboratory Tests Test 10/09/16 11:54 10/09/16 12:17 10/09/16 16:44 10/09/16 19:54 Bedside Glucose 286 H 160 262 H Creatine Kinase 64 Creatine Kinase Index 0.4 Creatinine Kinase MB (Mass) 0.23 Troponin I < 0.012 Test 10/10/16 05:16 10/10/16 08:00 10/10/16 09:39 Bedside Glucose 217 196 Anion Gap 17 H Basophils # 0.0 Basophils % 0.3 Blood Urea Nitrogen 13 Calcium Level 9.4 Carbon Dioxide Level 27 Chloride Level 100 Creatinine 0.60 L Eosinophils # 0.2 Eosinophils % 2.9 Glucose Level 191 Hematocrit 45.7 Hemoglobin 15.5 Lymphocytes # 3.0 H Lymphocytes % 42.9 Mean Corpuscular Hemoglobin 28.9 L Mean Corpuscular Hemoglobin Concent 33.9 Mean Corpuscular Volume 85.3 Mean Platelet Volume 10.6 H Monocytes # 0.4 Monocytes % 5.4 Neutrophils # 3.4 Neutrophils % 48.4 Nucleated Red Blood Cells # 0.0 Nucleated Red Blood Cells % 0.0 Platelet Count 183 Potassium Level 4.1 Red Blood Count 5.36 Red Cell Distribution Width 12.0 Sodium Level 140 White Blood Count 7.0 Medications Medications Current Medications Ondansetron HCl (Zofran Inj) 4 mg Q6H PRN IV NAUSEA AND/OR VOMITING; Start at 23:00 Acetaminophen (Tylenol Tab) 650 mg Q6H PRN PO PAIN LEVEL 1-3 OR FEVER; Start at 23:00 Acetaminophen/ Hydrocodone Bitart ([place] (5/325)) 1 tab Q6H PRN PO MODERATE PAIN LEVEL 4-6; Start 10/08/16 at 23:00 Morphine Sulfate (morphine) 2 mg Q4H PRN IV SEVERE PAIN LEVEL 7-10; Start 10/08 at 23:00 Docusate Sodium (Colace) 100 mg Q12H PRN PO CONSTIPATION; Start 10/08/16 at 23: 00 Magnesium Hydroxide (Milk Of Mag) 30 ml DAILY PRN PO CONSTIPATION; Start at 23:00 Sodium Biphosphate/ Sodium Phosphate (Fleet Enema) 133 ml DAILY PRN [place] CONSTIPATION; Start 10/08/16 at 23:00 Heparin Sodium (Porcine) (Heparin (5000 Units/0.5 ml)) 5,000 unit Q12 SC Last administered on 10/10/16t 08:47; Admin Dose 5,000 UNIT; Start 10/09/16 at 09:00 Lorazepam (Ativan) 0.5 mg Q6H PRN IV ANXIETY; Start 10/08/16 at 23:00 Hydralazine HCl (Apresoline) 10 mg Q6H PRN IV ELEVATED BLOOD PRESSURE; Start at 23:00 Clonidine (Catapres) 0.1 mg Q6H PRN PO ELEVATED BLOOD PRESSURE; Start 10/08/16 at 23:00 Nitroglycerin (Nitroglycerin (Sl Tab) 0.4 Mg) 1 tab Q5M PRN SL ANGINA; Start at 23:00 Aspirin (Ecotrin) 325 mg DAILY PO Last administered on 10/10/16 08:21; Admin Dose 325 MG; Start 10/09/16 at 09:00 Atorvastatin Calcium (Lipitor) 40 mg DAILY PO Last administered on 10/10/16 08 :21; Admin Dose 40 MG; Start 10/09/16 at 09:00 Miscellaneous Information 1 ea NOTE XX ; Start 10/08/16 at 23:00 Glucose (Glutose) 15 gm Q15M PRN PO DECREASED GLUCOSE; Start 10/08/16 at 23:00 Glucose (Glutose) 22.5 gm Q15M PRN PO DECREASED GLUCOSE; Start 10/08/16 at 23: 00 Dextrose (D50w Syringe) 25 ml Q15M PRN IV DECREASED GLUCOSE; Start 10/08/16 at 23:00 Dextrose (D50w Syringe) 50 ml Q15M PRN IV DECREASED GLUCOSE; Start 10/08/16 at 23:00 Glucagon (Glucagen) 1 mg Q15M PRN IM DECREASED GLUCOSE; Start 10/08/16 at 23:00 Glucose (Glutose) 15 gm Q15M PRN BUCCAL DECREASED GLUCOSE; Start 10/08/16 at 23 :00 Lisinopril (Zestril) 20 mg DAILY PO Last administered on 10/10/16 08:21; Admin Dose 20 MG; Start 10/09/16 at 09:00 Hydrochlorothiazide (Hydrochlorothiazide) 12.5 mg DAILY PO Last administered on 10/10/16 08:20; Admin Dose 12.5 MG; Start 10/09/16 at 09:00 Al Hydrox/Mg Hydrox/Simethicone (Mag-Al Plus) 30 ml Q4H PRN PO GASTROINTESTINAL UPSET; Start 10/09/16 at 11:00 Diagnostic Test (Pha) (Accucheck) 1 ea 02 XX ; Start 10/10/16 at 02:00 Insulin Glargine (Lantus) 5 unit QHS SC Last administered on 10/09/16 22:05; Admin Dose 5 UNIT; Start 10/09/16 at 21:00 Famotidine (Pepcid Iv) 20 mg BID IV Last administered on 10/10/16 08:21; Admin Dose 20 MG; Start 10/09/16 at 21:00 NONA BLACK MD Oct 10, 2016 11:21
--- NOTE | 2016-10-10 11:22 | PDOCDIS ---
Discharge Instructions CONDITION Patient Condition: Good HOME CARE INSTRUCTIONS: Special Diet: carb controlled diet ACTIVITY: Activity Restrictions: Slowly Increase Activity Rest between Activity Avoid heavy lifting Avoid Heavy Housework FOLLOW UP/APPOINTMENTS Appointments follow up with his own PMD through HMO insurance in 1-2 week after discharge,. Follow up with Cardiology as outpatient in 2-3 weeks( he will need a referral from his PMD to see cardiology as outpatient) NONA BLACK MD Oct 10, 2016 11:22
[2016-10-10] MEDS ORDERED: ESOM20CA PO (11:23)
[2016-10-10] MEDS ORDERED: LACTULOSE 30ML CUP PO PRN (11:30)
[2016-10-10] MEDS ORDERED: POLYETHYLENE GLYCOL 17 GM PACKET PO PRN (11:30)
[2016-10-10] MEDS ORDERED: POLYETHYLENE GLYCOL 17 GM PACKET PO ONE (11:30)
[2016-10-10] MEDS ORDERED: REGADENOSON 0.4 MG/5 ML SYG ONE (11:57)
--- NOTE | 2016-10-10 13:19 | CONS ---
Date/Time of Note Date/Time of Note DATE: 10/10/16 TIME: 13:15 Assessment/Plan Assessment/Plan Chief Complaint/Hosp Course IMp: 1,Chest pain-negative tropinin x 3 2.HTN 3.HL-LDL 97 HDL 34 4.Abnl ecg Recc: -tele -Serial ecg;'s -Continue asa/statin -Continue zestril/HCTZ -Lexiscan stress test today Problems: Consultation Date/Type/Reason Admit Date/Time Oct 08, 2016 at 22:08 Initial Consult Date 10/09/2016 Type of Consultation: Cardiology Reason for Consultation Chest pain Referring Provider: WILLIE CHACON MD Exam/Review of Systems Vital Signs Vitals Vital Signs Date Time Temp Pulse Resp B/P Pulse Ox O2 Delivery O2 Flow Rate FiO2 10/10/16 12:11 62 10/10/16 07:21 98.2 20 121/71 98 10/09/16 05:20 Room Air Intake and Output 10/09/16 10/09/16 10/10/16 14:59 22:59 06:59 Intake Total 970 ml 60 ml Balance 970 ml 60 ml Exam Review of Systems: CONSTITUTIONAL: No fevers, chills. PULMONARY: No sob CARDIOVASCULAR: INtermittent chest pain/palpitations GASTROINTESTINAL: No nausea/vomiting. GENITOURINARY: No hematuria/dysuria. MUSCULOSKELETAL: No myagias/arthalgias. PSYCHIATRIC: The patient denies depression. NEUROLOGIC: No weakness Constitutional: alert, oriented Psych: no complaints Head: normocephalic Eyes: nl conjunctiva ENMT: mucosa pink and moist Neck: supple Respiratory: clear to auscultation Cardiovascular: regular rate and rhythm Gastrointestinal: non-tender, soft Musculoskeletal: muscle tone (normal) Extremities: edema (none) Neurological: other (No focal deficits) Results Result Diagram: 10/10/16 0939 10/10/16 0939 Results 24 hrs Laboratory Tests Test 10/09/16 16:44 10/09/16 19:54 10/10/16 05:16 10/10/16 08:00 Bedside Glucose 160 262 H 217 196 Test 10/10/16 09:39 Anion Gap 17 H Basophils # 0.0 Basophils % 0.3 Blood Urea Nitrogen 13 Calcium Level 9.4 Carbon Dioxide Level 27 Chloride Level 100 Creatinine 0.60 L Eosinophils # 0.2 Eosinophils % 2.9 Glucose Level 191 Hematocrit 45.7 Hemoglobin 15.5 Lymphocytes # 3.0 H Lymphocytes % 42.9 Mean Corpuscular Hemoglobin 28.9 L Mean Corpuscular Hemoglobin Concent 33.9 Mean Corpuscular Volume 85.3 Mean Platelet Volume 10.6 H Monocytes # 0.4 Monocytes % 5.4 Neutrophils # 3.4 Neutrophils % 48.4 Nucleated Red Blood Cells # 0.0 Nucleated Red Blood Cells % 0.0 Platelet Count 183 Potassium Level 4.1 Red Blood Count 5.36 Red Cell Distribution Width 12.0 Sodium Level 140 White Blood Count 7.0 Medications Medications Current Medications Ondansetron HCl (Zofran Inj) 4 mg Q6H PRN IV NAUSEA AND/OR VOMITING; Start at 23:00 Acetaminophen (Tylenol Tab) 650 mg Q6H PRN PO PAIN LEVEL 1-3 OR FEVER; Start at 23:00 Acetaminophen/ Hydrocodone Bitart ([place] (5/325)) 1 tab Q6H PRN PO MODERATE PAIN LEVEL 4-6; Start 10/08/16 at 23:00 Morphine Sulfate (morphine) 2 mg Q4H PRN IV SEVERE PAIN LEVEL 7-10; Start 10/08 at 23:00 Docusate Sodium (Colace) 100 mg Q12H PRN PO CONSTIPATION; Start 10/08/16 at 23: 00 Magnesium Hydroxide (Milk Of Mag) 30 ml DAILY PRN PO CONSTIPATION; Start at 23:00 Sodium Biphosphate/ Sodium Phosphate (Fleet Enema) 133 ml DAILY PRN IN CONSTIPATION; Start 10/08/16 at 23:00 Heparin Sodium (Porcine) (Heparin (5000 Units/0.5 ml)) 5,000 unit Q12 SC Last administered on 10/10/16t 08:47; Admin Dose 5,000 UNIT; Start 10/09/16 at 09:00 Lorazepam (Ativan) 0.5 mg Q6H PRN IV ANXIETY; Start 10/08/16 at 23:00 Hydralazine HCl (Apresoline) 10 mg Q6H PRN IV ELEVATED BLOOD PRESSURE; Start at 23:00 Clonidine (Catapres) 0.1 mg Q6H PRN PO ELEVATED BLOOD PRESSURE; Start 10/08/16 at 23:00 Nitroglycerin (Nitroglycerin (Sl Tab) 0.4 Mg) 1 tab Q5M PRN SL ANGINA; Start at 23:00 Aspirin (Ecotrin) 325 mg DAILY PO Last administered on 10/10/16 08:21; Admin Dose 325 MG; Start 10/09/16 at 09:00 Atorvastatin Calcium (Lipitor) 40 mg DAILY PO Last administered on 10/10/16 08 :21; Admin Dose 40 MG; Start 10/09/16 at 09:00 Miscellaneous Information 1 ea NOTE XX ; Start 10/08/16 at 23:00 Glucose (Glutose) 15 gm Q15M PRN PO DECREASED GLUCOSE; Start 10/08/16 at 23:00 Glucose (Glutose) 22.5 gm Q15M PRN PO DECREASED GLUCOSE; Start 10/08/16 at 23: 00 Dextrose (D50w Syringe) 25 ml Q15M PRN IV DECREASED GLUCOSE; Start 10/08/16 at 23:00 Dextrose (D50w Syringe) 50 ml Q15M PRN IV DECREASED GLUCOSE; Start 10/08/16 at 23:00 Glucagon (Glucagen) 1 mg Q15M PRN IM DECREASED GLUCOSE; Start 10/08/16 at 23:00 Glucose (Glutose) 15 gm Q15M PRN BUCCAL DECREASED GLUCOSE; Start 10/08/16 at 23 :00 Lisinopril (Zestril) 20 mg DAILY PO Last administered on 10/10/16 08:21; Admin Dose 20 MG; Start 10/09/16 at 09:00 Hydrochlorothiazide (Hydrochlorothiazide) 12.5 mg DAILY PO Last administered on 10/10/16 08:20; Admin Dose 12.5 MG; Start 10/09/16 at 09:00 Al Hydrox/Mg Hydrox/Simethicone (Mag-Al Plus) 30 ml Q4H PRN PO GASTROINTESTINAL UPSET; Start 10/09/16 at 11:00 Diagnostic Test (Pha) (Accucheck) 1 ea 02 XX ; Start 10/10/16 at 02:00 Insulin Glargine (Lantus) 5 unit QHS SC Last administered on 10/09/16 22:05; Admin Dose 5 UNIT; Start 10/09/16 at 21:00 Famotidine (Pepcid Iv) 20 mg BID IV Last administered on 10/10/16 08:21; Admin Dose 20 MG; Start 10/09/16 at 21:00 Polyethylene Glycol (Miralax) 17 gm DAILY PRN PO constipation ; Start 10/10/16 at 11:30 Lactulose (Enulose) 20 gm BID PRN PO CONSTIPATION; Start 10/10/16 at 11:30 FEROZ DICKINSON Oct 10, 2016 13:19
[2016-10-10] MEDS ORDERED: INSULIN GLARGINE [LANtus] 3 ML PEN SC SCH (14:00)
--- NOTE | 2016-10-10 15:09 | CARRPT ---
DATE OF PROCEDURE: 10/10/2016 PROCEDURE PERFORMED: Lexiscan Cardiolite stress test, electrocardiogram portion. INDICATION: Chest pain, assess for ischemia. BASELINE VITAL SIGNS AND ELECTROCARDIOGRAM: Pulse 59, blood pressure 131/79. Electrocardiogram wit h sinus bradycardia, rate 59 with normal axis, normal intervals, J-point elevation diffusely. PROCEDURE: The patient underwent standard Lexiscan infusion protocol for 10 seconds followed by rad iolabeled tracer. The patient's test was stopped due to completion of protocol. Maximal achieved b lood pressure during the test 119/74. Maximum heart rate during the test 90. ELECTROCARDIOGRAM FINDINGS: During Lexiscan infusion, the patient did not develop any new Lexiscan- induced ST or T-wave changes or baseline abnormalities. No documented PVCs. SYMPTOMS: The patient had no complaints of chest pain during stress testing or shortness of breath. IMPRESSION: 1. No Lexiscan-induced ST or T-wave changes from baseline abnormalities or diagnostic cardiac ische joanne. 2. No complaints of chest pain or shortness of breath during stress testing. 3. No documented premature ventricular contractions during stress testing. 4. Report of nuclear images to follow in separate dictation. Dictated By: FEROZ HUANG/ENEDELIA Conf#: [id number] DID#: [id number] CC: Elias Avery;*EndCC*
--- NOTE | 2016-10-10 15:14 | RADRPT ---
PROCEDURE: Nuclear medicine myocardial stress and rest scan. CLINICAL INDICATION: Chest pain. TECHNIQUE: The patient was stressed with 0.4 mg IV Lexiscan. 9.4 mCi technetium 99m Tetrofosmin ( Myoview) was administered rest. 25.3 mCi technetium 99m Tetrofosmin (Myoview) was administered dur ing stress. Images were obtained and reconstructed in the short axis, horizontal long axis, and danni tical long axis. Gated images were obtained and ejection fraction was calculated. COMPARISON: No prior study is available for comparison. FINDINGS: The stress and rest images demonstrate a subtle region of reversibility in the proximal and mid infe rior wall which may indicate ischemia. There is no fixed abnormality. There is no evidence of trans ient ischemic dilatation. Wall motion is normal. There is normal wall thickening during systole. Ejection fraction at stress is 50%. IMPRESSION: 1. Subtle region of reversibility in the proximal and mid inferior wall which may indicate ischemia . 2. No other fixed or reversible abnormality. 3. Ejection fraction at stress is 50%. RPTAT: QQ .Tip Arrieta MD, Date Time Electronically viewed and signed by .Tip Arrieta MD, MD on 10/10/2016 15:14 .R/
--- NOTE | 2016-10-15 16:22 | DS ---
DATE OF ADMISSION: 10/08/2016 DATE OF DISCHARGE: 10/10/2016 FINAL DISCHARGE DIAGNOSES: 1. Atypical chest pain. Serial troponins and EKG negative. 2. Acute gastritis causing atypical chest pain. 3. Essential hypertension. 4. Prediabetes. 5. Hypertensive emergency, resolved. 6. History of smoking. 7. History of hyperlipidemia. CONSULTATIONS DONE DURING THIS HOSPITALIZATION: Cardiology consult, Dr. Vincent Hidalgo. PROCEDURES PERFORMED DURING THIS HOSPITALIZATION: The patient had a Lexiscan myocardial perfusion s tress test done which revealed ejection fraction 50%. Septal region of reversibility in the proxima l and the mid inferior wall which may indicate ischemia. HOSPITAL COURSE: This is a 46-year-old male who has a past medical history of hypertension, hyperli pidemia, history of smoking who presented with a complaint of chest pain. The patient gets admitted to the telemetry floor where he had serial troponins and EKG negative for any acute coronary syndro me. The patient was recommended to have a Lexiscan, which revealed a septal low level reversible pe rfusion defects and with a normal ejection fraction. He was recommended to have wall cardiac cathet erization for his positive suboptimal positive stress test, but patient refused to have cardiac cath eterization. He wanted to go home. He has been explained about the discharge plan. He has been ex plained about the risks and complications of signing out against medical advice. The patient was no t cleared for the discharge. He was explained by Dr. Vincent Hidalgo about a positive stress test and need for cardiac catheterization, but the patient did not want to stay in the hospital. Ultimately , he signed out against medical advice knowing the risks and complications of against medical advice including possible . He understood it and verbalized back to the nursing staff at the time of signing out form. DISPOSITION: Please note that the patient signed out against medical advice during this hospitaliza tion. DISCHARGE MEDICATIONS: The patient did not wait for any prescriptions to be given. He signed out a gainst medical advice during his stay. Dictated By: NONA BLACK MD, KP/ENEDELIA Conf#: [id number] DID#: [id number]
== END 2016-10-10 19:32 | disposition home or self-care (01) | DRG 313 ==
LOC: E/R 18:23 → TEL 22:08
PROVIDERS: ADMIT Hospitalist; ATTEND Hospitalist
DX: R07.89 Other chest pain (principal); I10 Essential (primary) hypertension; F17.200 Nicotine dependence, unspecified, uncomplicated; E78.00 Pure hypercholesterolemia, unspecified; E11.9 Type 2 diabetes mellitus without complications
CPT/HCPCS: 36415; 71010; 71275; 78452; 80048; 80061; 82550; 82553; 82962; 83036; 83690; 83735; 84100; 84439; 84443; 84484; 85025; 85610; 85730; 93005; 93017; 93306; 96374; 96375; A9500; A9505; J1815; J2270; J2405; J2785; Q9967